=== PATIENT | female | born 1955 | race Two or more races ===

== ENCOUNTER 2021-12-09 21:46 | Inpatient (IN) | payer MEDICARE, OTHER ==
[~2021-12-09] VITALS: Ht 167.6 cm; Wt 62.1 kg
[2021-12-09] MEDS ORDERED: ACET-2154 PO (22:19)
[2021-12-09] MEDS ORDERED: MEMA10TA PO (22:19)
[2021-12-09] MEDS ORDERED: MONT10TA33 PO (22:19)
[2021-12-09] MEDS ORDERED: DONE5TAB34 PO (22:19)
[2021-12-09] MEDS ORDERED: SENN-261 PO (22:19)
[2021-12-09] MEDS ORDERED: ENOX40DI SUBCUT (22:19)
[2021-12-09] MEDS ORDERED: ATOR40TA PO (22:19)
[2021-12-09] MEDS ORDERED: TRAZ-182 PO ×3 (22:19)
[2021-12-09] MEDS ORDERED: DIVA-78 PO (22:19)
[2021-12-09] MEDS ORDERED: IPRA0.2S48 NEB (22:19)
[2021-12-09] MEDS ORDERED: HALO2TAB PO (22:19)
[2021-12-09] MEDS ORDERED: MULT-594 PO (22:19)
[2021-12-09] MEDS ORDERED: DONE10TA44 PO (22:19)
[2021-12-09] MEDS ORDERED: ALBU8.5H8 INH (22:19)
[2021-12-09] MEDS ORDERED: BISA10SU61 RC (22:19)
[2021-12-09] MEDS ORDERED: MIRT-93 PO (22:19)
[2021-12-09] MEDS ORDERED: ACET-73 PO (22:19)
[2021-12-09] MEDS ORDERED: ONDA4TAB11 PO (22:19)
[2021-12-09] MEDS ORDERED: QUET50TA PO (22:19)
[2021-12-09] MEDS ORDERED: PANT40TA49 PO (22:19)
[2021-12-09] MEDS ORDERED: OLAN5TAB70 PO (22:19)
[2021-12-09] MEDS ORDERED: BUDE10.27 INH (22:19)
[2021-12-09] MEDS ORDERED: POLY17PO4 PO (22:19)
[2021-12-09] MEDS ORDERED: MAGN400O6 PO (22:19)
[2021-12-09] MEDS ORDERED: MELA3TAB41 PO (22:19)
[2021-12-09 22:29] LABS: MEAN CORPUSCULAR HEMOGLOBIN 34.2 uug (24.7-32.8); MEAN CORPUSCULAR VOLUME 101.1 fL (75.5-95.3); PLATELET COUNT (AUTO) 170 K/uL (179-408)
[2021-12-09 22:40] LABS: BILIRUBIN,DIRECT 0.1 mg/dL (0.0-0.2); BILIRUBIN,TOTAL 0.2 mg/dL (0.2-1.0); CREATININE 0.8 mg/dL (0.6-1.3); POTASSIUM 3.8 mmol/L (3.5-5.1)
[2021-12-10] MEDS ORDERED: MAG HYDROX/AL HYDROX/SIMETH 30 ML LIQUID UDC PO PRN (02:00)
[2021-12-10] MEDS ORDERED: MAGNESIUM HYDROXIDE 30 ML LIQUID UDC PO PRN (02:00)
[2021-12-10] MEDS ORDERED: ACETAMINOPHEN 650 MG SUPP.RECT RC PRN (02:00)
[2021-12-10] MEDS: CLONAZEPAM 0.5 MG TABLET PO PRN ×4 (02:45→21:49)
[2021-12-10 07:30] VITALS: BP 149/112
[2021-12-10] MEDS: DIVALPROEX SPRINKLE 125 MG CAP.SPRINK PO SCH ×2 (10:51→21:05)
[2021-12-10] MEDS: SERTRALINE HCL 50 MG TABLET PO SCH (11:00)
[2021-12-10 16:00] VITALS: BP 97/58
[2021-12-10 20:00] VITALS: BP 109/49
[2021-12-10] MEDS ORDERED: DIVALPROEX 125 MG TABLET.DR PO SCH (21:00)
[2021-12-10] MEDS: TEMAZEPAM 7.5 MG CAPSULE PO PRN (21:05)
[2021-12-11 08:08] VITALS: BP 105/55
[2021-12-11 08:27] LABS: BILIRUBIN,TOTAL 0.3 mg/dL (0.2-1.0); CREATININE 0.9 mg/dL (0.6-1.3); POTASSIUM 4.3 mmol/L (3.5-5.1); TOTAL PROTEIN, SERUM 5.9 g/dL (6.4-8.2)
[2021-12-11] MEDS: DIVALPROEX SPRINKLE 125 MG CAP.SPRINK PO SCH ×2 (09:25→21:02)
[2021-12-11] MEDS: SERTRALINE HCL 50 MG TABLET PO SCH (09:25)
[2021-12-11] MEDS ORDERED: SERTRALINE HCL 50 MG TABLET PO SCH (10:00)
[2021-12-11] MEDS: CLONAZEPAM 0.5 MG TABLET PO PRN ×2 (10:23→20:14)
[2021-12-11] MEDS ORDERED: HALOPERIDOL LACTATE 5 MG/1 ML VIAL IM ONE (12:15)
[2021-12-11] MEDS ORDERED: BISACODYL 10 MG SUPP.RECT RC PRN (12:15)
[2021-12-11] MEDS ORDERED: ALBUTEROL SULFATE 8 GM HFA.AER.AD INH PRN (12:15)
[2021-12-11] MEDS ORDERED: diphenhydrAMINE 50 MG/1 ML VIAL IM ONE (12:15)
[2021-12-11] MEDS ORDERED: LORAZEPAM 2 MG/1 ML VIAL IV ONE (12:15)
[2021-12-11] MEDS ORDERED: IPRATROPIUM BROMIDE 0.5 MG/2.5 ML NEBU NEB PRN (12:15)
[2021-12-11] MEDS ORDERED: LORAZEPAM 2 MG/1 ML VIAL IM ONE (12:30)
[2021-12-11 14:31] VITALS: BP 98/54
[2021-12-11 16:57] VITALS: BP 102/50
[2021-12-11] MEDS: SENNOSIDES 1 TABLET PO SCH (17:00)
[2021-12-11 20:02] VITALS: BP 101/52
[2021-12-12] MEDS ORDERED: ALBUTEROL SULFATE 2.5 MG/3 ML NEBU NEB PRN (06:00)
[2021-12-12] MEDS: CLONAZEPAM 0.5 MG TABLET PO PRN ×5 (06:21→22:05)
[2021-12-12] MEDS: ACETAMINOPHEN 325 MG TABLET PO PRN ×2 (07:21→15:44)
[2021-12-12 07:50] VITALS: BP 96/48
[2021-12-12] MEDS: MIRALAX 17 GM POWD.PACK PO SCH (09:38)
[2021-12-12] MEDS: MONTELUKAST SODIUM 10 MG TABLET PO SCH (09:39)
[2021-12-12] MEDS: MULTIVITAMINS,THERAPEUTIC TABLET PO SCH (09:39)
[2021-12-12] MEDS: PANTOPRAZOLE SODIUM 40 MG TABLET.DR PO SCH (09:39)
[2021-12-12] MEDS: REMEDY ESSENTIAL ZINC PASTE 113 GM TOP SCH ×2 (09:40→21:00)
[2021-12-12] MEDS: SERTRALINE HCL 50 MG TABLET PO SCH (09:40)
[2021-12-12] MEDS: SENNOSIDES 1 TABLET PO SCH ×2 (09:40→17:18)
[2021-12-12] MEDS: DIVALPROEX SPRINKLE 125 MG CAP.SPRINK PO SCH ×2 (09:44→20:37)
[2021-12-12] MEDS: FLUTICASONE/VILANTEROL 1 EACH BLST.W.DEV INH SCH (11:00)
[2021-12-12 16:07] VITALS: BP 125/61
[2021-12-12 20:06] VITALS: BP 117/67
[2021-12-13 08:00] VITALS: BP 138/97
[2021-12-13] MEDS: CLONAZEPAM 0.5 MG TABLET PO PRN ×3 (08:52→17:15)
[2021-12-13] MEDS: FLUTICASONE/VILANTEROL 1 EACH BLST.W.DEV INH SCH (08:52)
[2021-12-13] MEDS: SENNOSIDES 1 TABLET PO SCH ×2 (08:52→17:13)
[2021-12-13] MEDS: MONTELUKAST SODIUM 10 MG TABLET PO SCH (08:52)
[2021-12-13] MEDS: SERTRALINE HCL 50 MG TABLET PO SCH (08:52)
[2021-12-13] MEDS: MULTIVITAMINS,THERAPEUTIC TABLET PO SCH (08:52)
[2021-12-13] MEDS: DIVALPROEX SPRINKLE 125 MG CAP.SPRINK PO SCH ×2 (08:52→20:05)
[2021-12-13] MEDS: MIRALAX 17 GM POWD.PACK PO SCH (08:52)
[2021-12-13] MEDS: PANTOPRAZOLE SODIUM 40 MG TABLET.DR PO SCH (08:52)
[2021-12-13] MEDS: REMEDY ESSENTIAL ZINC PASTE 113 GM TOP SCH ×2 (08:53→20:07)
[2021-12-13] MEDS: ACETAMINOPHEN 325 MG TABLET PO PRN (12:40)
[2021-12-13 16:43] VITALS: BP 109/64
[2021-12-13 20:02] VITALS: BP 130/64
[2021-12-13] MEDS ORDERED: OLANZAPINE ZYDIS 5 MG TAB.RAPDIS PO SCH (21:00)
[2021-12-13] MEDS: TEMAZEPAM 7.5 MG CAPSULE PO PRN (21:19)
[2021-12-14] MEDS: CLONAZEPAM 0.5 MG TABLET PO PRN ×2 (03:26→11:46)
[2021-12-14 07:30] VITALS: BP 99/52
[2021-12-14] MEDS: SERTRALINE HCL 50 MG TABLET PO SCH (08:50)
[2021-12-14] MEDS: SENNOSIDES 1 TABLET PO SCH (08:50)
[2021-12-14] MEDS: MULTIVITAMINS,THERAPEUTIC TABLET PO SCH (08:50)
[2021-12-14] MEDS: MONTELUKAST SODIUM 10 MG TABLET PO SCH (08:50)
[2021-12-14] MEDS: DIVALPROEX SPRINKLE 125 MG CAP.SPRINK PO SCH (08:50)
[2021-12-14] MEDS: PANTOPRAZOLE SODIUM 40 MG TABLET.DR PO SCH (08:50)
[2021-12-14] MEDS: FLUTICASONE/VILANTEROL 1 EACH BLST.W.DEV INH SCH (08:51)
[2021-12-14] MEDS: MIRALAX 17 GM POWD.PACK PO SCH (08:51)
[2021-12-14] MEDS: REMEDY ESSENTIAL ZINC PASTE 113 GM TOP SCH (08:52)
[2021-12-14] MEDS: ACETAMINOPHEN 325 MG TABLET PO PRN (11:46)
== END 2021-12-14 14:30 | disposition hospice, inpatient (51) | DRG 885 ==
LOC: ER 21:51 → GPS 12-10 01:18
PROVIDERS: ADMIT Psychiatry & Neurology Psychiatry; ATTEND Internal Medicine
DX: F32.3 Major depressive disorder, single episode, severe with psychotic features (principal); F41.9 Anxiety disorder, unspecified; G30.0 Alzheimer's disease with early onset; F02.80 Dementia in other diseases classified elsewhere, unspecified severity, without behavioral disturbance, psychotic disturbance, mood disturbance, and anxiety; J44.9 Chronic obstructive pulmonary disease, unspecified; F43.10 Post-traumatic stress disorder, unspecified; X58.XXXS Exposure to other specified factors, sequela; Z86.16 Personal history of COVID-19; E78.5 Hyperlipidemia, unspecified; K21.9 Gastro-esophageal reflux disease without esophagitis; G40.909 Epilepsy, unspecified, not intractable, without status epilepticus; D69.6 Thrombocytopenia, unspecified; Z87.440 Personal history of urinary (tract) infections; Z79.899 Other long term (current) drug therapy; D51.9 Vitamin B12 deficiency anemia, unspecified; Z81.8 Family history of other mental and behavioral disorders
CPT/HCPCS: 36415; 71045; 80164; 85025; 93005; 97161; A4663; J1200; J1630; J2060; J3535

== ENCOUNTER 2022-01-25 18:14 | Inpatient (IN) | payer MEDICARE, OTHER ==
[~2022-01-25] VITALS: Ht 154.9 cm; Wt 56.7 kg
[~2022-01-25 18:14] MED LIST: ACET-2154 PO; ACET-73 PO; ALBU8.5H8 INH; ATOR40TA PO; BISA10SU61 RC; BUDE10.27 INH; ENOX40DI SUBCUT; IPRA0.2S48 NEB; MAGN400O6 PO; MONT10TA33 PO; MULT-594 PO; ONDA4TAB11 PO; PANT40TA49 PO; POLY17PO4 PO; SENN-261 PO
--- NOTE | 2022-01-25 18:23 | NUR ---
MEDICATION RECONCILIATION: There is no information available about pt's current home medications. Pt is unable to provide information and there was no information sent with the paperwork from her facility.
[2022-01-25] MEDS ORDERED: IV NORMAL SALINE 1000 ML BAG IV ONE (18:45)
[2022-01-25 18:52] LABS: HEMATOCRIT 41.3 % (31.2-41.9); MEAN CORPUSCULAR HEMOGLOBIN 33.8 uug (24.7-32.8); MEAN CORPUSCULAR VOLUME 98.5 fL (75.5-95.3); PLATELET COUNT (AUTO) 208 K/uL (179-408)
[2022-01-25 18:59] LABS: CREATININE 0.7 mg/dL (0.6-1.3); POTASSIUM 4.4 mmol/L (3.5-5.1)
[2022-01-25 19:05] LABS: BILIRUBIN,DIRECT 0.1 mg/dL (0.0-0.2); BILIRUBIN,TOTAL 0.5 mg/dL (0.2-1.0); TOTAL PROTEIN, SERUM 6.7 g/dL (6.4-8.2)
[2022-01-25] MEDS ORDERED: KETAMINE HCL 500 MG/10 ML INJ ONE (19:12)
[2022-01-25] MEDS ORDERED: KETAMINE HCL 500 MG/10 ML INJ IV ONE (19:15)
[2022-01-25 20:19] LABS: *BILIRUBIN,URIN NEGATIVE (NEGATIVE); *BLOOD, URINE NEGATIVE (NEGATIVE); *CLARITY,URINE CLEAR (CLEAR); *COLOR,URINE YELLOW (YELLOW); *KETONES,URINE 1+ (NEGATIVE); LEUKOCYTE ESTERASE ,URINE NEGATIVE (NEGATIVE); NITRITE, URINE NEGATIVE (NEGATIVE); PH,URINE 7.5 (5.0-8.0); UGLUCOSE NEGATIVE (NEGATIVE)
[2022-01-25] MEDS ORDERED: ZIPRASIDONE MESYLATE 20 MG VIAL IM ONE ×2 (20:30→20:31)
[2022-01-25 22:24] LABS: BACTERIA,URINE FEW /HPF (NONE SEEN); MUCUS,URINE MODERATE /LPF (0-FEW); RBC,URINE 0-3 /HPF (0-3); SQUAMOUS EPITHELIAL CELL,UR MODERATE /HPF (NONE SEEN); WBC,URINE 0-3 /HPF (0-3)
[2022-01-25] MEDS ORDERED: REMEDY ESSENTIAL ZINC PASTE 113 GM TP PRN (22:45)
[2022-01-25] MEDS ORDERED: ACETAMINOPHEN 650 MG SUPP.RECT RC PRN (22:45)
[2022-01-25] MEDS ORDERED: ONDANSETRON 4 MG/2 ML VIAL IV PRN (22:45)
--- NOTE | 2022-01-25 23:30 | NUR ---
called for bed. Patient will go to room 304
--- NOTE | 2022-01-26 00:08 | NUR ---
report given to Mayi KENT
--- NOTE | 2022-01-26 00:35 | NUR ---
Pt. admitted to room 304 , under care of Dr Norwood Belongs List completed Mayi RN aware of patient's arrival
[2022-01-26] MEDS: IV D5 1/2 NS 1000 ML 1,000 ML IV PRN ×2 (00:46→14:34)
[2022-01-26 00:59] VITALS: BP 134/65
--- NOTE | 2022-01-26 01:00 | NUR ---
Pt admitted to med surg in stable condition. No distress noted. Pt unable to follow commands and remains confused. IV site intact. Neville intact draining to gravity.
[2022-01-26] MEDS: ZIPRASIDONE MESYLATE 20 MG VIAL IM PRN ×2 (03:38→12:39)
--- NOTE | 2022-01-26 03:45 | NUR ---
Pt given IM Geodon 10mg for agitation. Pt yelling and trying to get out of bed, being combative with staff. Tolerated medication well.
[2022-01-26 04:00] VITALS: BP 141/73
[2022-01-26 07:37] LABS: HEMATOCRIT 38.6 % (31.2-41.9); MEAN CORPUSCULAR VOLUME 100.6 fL (75.5-95.3); PLATELET COUNT (AUTO) 176 K/uL (179-408)
[2022-01-26 07:50] LABS: CREATININE 0.8 mg/dL (0.6-1.3); MAGNESIUM 2.1 mg/dL (1.8-2.4); PHOSPHOROUS 3.7 mg/dL (2.5-4.9); POTASSIUM 4.3 mmol/L (3.5-5.1)
[2022-01-26] MEDS: PANTOPRAZOLE SODIUM 40 MG VIAL IV SCH (08:49)
--- NOTE | 2022-01-26 10:29 | NUR ---
Patient becoming more agitated. Next medication due at 1138. Other measures provided, patient attempting to get out of bed. Patient to have psyche consult tomorrow morning.
--- NOTE | 2022-01-26 11:02 | NUR ---
Patient to not receive Geodone during PM shift due to patient's psyche consult tomorrow morning. Will endorse information to PM nurse.
[2022-01-26 12:00] VITALS: BP 90/49
[2022-01-26 15:59] LABS: *BILIRUBIN,URIN NEGATIVE (NEGATIVE); *BLOOD, URINE 3+ (NEGATIVE); *CLARITY,URINE CLEAR (CLEAR); *COLOR,URINE YELLOW (YELLOW); *KETONES,URINE 1+ (NEGATIVE); *UROBILINOGEN,URINE 0.2 E.U./dl (NORMAL); LEUKOCYTE ESTERASE ,URINE 1+ (NEGATIVE); NITRITE, URINE NEGATIVE (NEGATIVE); UGLUCOSE NEGATIVE (NEGATIVE)
[2022-01-26 16:00] VITALS: BP 109/51
--- NOTE | 2022-01-26 17:12 | NUR ---
New david catheter placed due to previous david catheter bypassing.
[2022-01-26] MEDS: CEFTRIAXONE 1 G in IV DEXTROSE 5% 50 ML IV SCH (18:20)
--- NOTE | 2022-01-26 18:35 | NUR ---
Patient received care well today, despite being agitated. Pharmacological measures taken to help reduce patients agitation and being combative. Patient to remain NPO. Patient started on rochepin this evening and tolerating well. Mittens place on both hands bilaterally to prevent patient from pulling on IV site. IV site intact and patent. Bed left in lowest position with sitter at bedside. Patient 1:1. Comfort measures provided.
--- NOTE | 2022-01-26 19:30 | NUR ---
Received patient lying in bed. 1:1 sitter on site. Patient alert but confused and disoriented. Still unable to sit still in bed. Screams at times but redirectable. IV site on left hand intact and patent. IVF infusing. NPO status at this time. Needs anticipated to. Continue to monitor.
[2022-01-26 20:00] VITALS: BP 131/65
[2022-01-26] MEDS: HEPARIN SODIUM,PORCINE 5,000 UNITS/ML VIAL SQ SCH (20:32)
[2022-01-26 21:14] LABS: RBC,URINE 20-50 /HPF (0-3)
[2022-01-26 21:15] LABS: BACTERIA,URINE NONE SEEN /HPF (NONE SEEN); MUCUS,URINE FEW /LPF (0-FEW); SQUAMOUS EPITHELIAL CELL,UR NONE SEEN /HPF (NONE SEEN)
--- NOTE | 2022-01-27 | NUR ---
SBAR report given and care transferred to YOLI Quintero.
[2022-01-27] MEDS: OLANZAPINE 10 MG VIAL IM PRN ×2 (00:30→14:52)
--- NOTE | 2022-01-27 00:30 | NUR ---
Patient screaming, unable to sleep, and agitated, Xyprexia 5mg IM given.
[2022-01-27] MEDS: IV D5 1/2 NS 1000 ML 1,000 ML IV PRN ×2 (03:23→14:45)
[2022-01-27 04:00] VITALS: BP 125/72
--- NOTE | 2022-01-27 05:36 | NUR ---
Patient able to slept in short time intervals, intervals with calm behavior. Dry mouth noted, oral care done.
[2022-01-27 07:25] LABS: HEMATOCRIT 37.1 % (31.2-41.9); MEAN CORPUSCULAR HEMOGLOBIN 34.3 uug (24.7-32.8); MEAN CORPUSCULAR VOLUME 97.8 fL (75.5-95.3); PLATELET COUNT (AUTO) 188 K/uL (179-408)
[2022-01-27 07:56] LABS: CREATININE 0.7 mg/dL (0.6-1.3); MAGNESIUM 1.8 mg/dL (1.8-2.4); PHOSPHOROUS 3.3 mg/dL (2.5-4.9); POTASSIUM 4.4 mmol/L (3.5-5.1)
[2022-01-27 07:59] LABS: THYROID STIMULATING HORMONE 1.763 mIU/mL (0.358-3.740)
[2022-01-27] MEDS: PANTOPRAZOLE SODIUM 40 MG VIAL IV SCH (08:07)
[2022-01-27] MEDS: HEPARIN SODIUM,PORCINE 5,000 UNITS/ML VIAL SQ SCH ×2 (08:08→20:39)
--- NOTE | 2022-01-27 08:16 | NUR ---
Received patient lying in bed. 1:1 sitter at bed side Patient alert but confused and disoriented. Screams at this time IV site on left hand intact and patent. IVF infusing. NPO status at this time. Continue to monitor.
[2022-01-27 11:57] VITALS: BP 117/72
--- NOTE | 2022-01-27 12:34 | NUR ---
PT WENT TO OR VIA BED FOR THE PROCEDURE
[2022-01-27] MEDS ORDERED: PROPOFOL 200 MG/20 ML BOTTLE IV ONE (12:53)
[2022-01-27] MEDS ORDERED: CEFAZOLIN 1 G VIAL IM ONE (12:53)
[2022-01-27] MEDS ORDERED: LIDOCAINE-MPF 2% 5 ML VIAL IJ ONE (12:53)
--- NOTE | 2022-01-27 14:38 | NUR ---
PT RECEIVED FROM RECOVERY ROOM VIA BED IN STABLE CONDITION
--- NOTE | 2022-01-27 14:52 | NUR ---
PT IS YELLING SCREAMING AND HITTING THE STAFF PER MD ORDERS ZYPREXA 5MG IM GIVEN
[2022-01-27 15:15] VITALS: BP 120/84
[2022-01-27] MEDS: CEFTRIAXONE 1 G in IV DEXTROSE 5% 50 ML IV SCH (17:43)
--- NOTE | 2022-01-27 19:30 | NUR ---
Patient in bed, thrashing, yelling and attempting to hit staff when care is being provided. Patient is Lao speaking but does not answer to any questions in Lao. Sitter is at bed side. S/p PEG placement, PEG [address], no active bleeding. NPO. Seizure precautions followed. Safety measures in place.
[2022-01-27 19:45] VITALS: BP 141/88
[2022-01-27] MEDS: MORPHINE SULFATE 4 MG/1 ML DISP.SYRIN IV PRN (20:38)
--- NOTE | 2022-01-28 01:00 | NUR ---
Patient is now sleeping comfortably, Mittens discontinued. Sitter is at bedside.
[2022-01-28 04:30] VITALS: BP 132/66
[2022-01-28] MEDS: IV D5 1/2 NS 1000 ML 1,000 ML IV PRN ×2 (05:11→17:46)
[2022-01-28 06:54] LABS: HEMATOCRIT 39.5 % (31.2-41.9); MEAN CORPUSCULAR HEMOGLOBIN 33.5 uug (24.7-32.8); PLATELET COUNT (AUTO) 212 K/uL (179-408)
[2022-01-28 07:21] LABS: CREATININE 0.6 mg/dL (0.6-1.3); MAGNESIUM 1.8 mg/dL (1.8-2.4); PHOSPHOROUS 3.6 mg/dL (2.5-4.9); POTASSIUM 3.5 mmol/L (3.5-5.1)
[2022-01-28 08:00] VITALS: BP 122/52
[2022-01-28] MEDS: HEPARIN SODIUM,PORCINE 5,000 UNITS/ML VIAL SQ SCH ×2 (08:00→20:38)
[2022-01-28] MEDS: PANTOPRAZOLE SODIUM 40 MG VIAL IV SCH (08:00)
[2022-01-28] MEDS: JEVITY 1.2 1000 ML LIQUID GT PRN (08:39)
[2022-01-28] MEDS: DIVALPROEX 500 MG TABLET.DR PO SCH ×2 (11:37→16:18)
[2022-01-28] MEDS: TRAZODONE 50 MG TABLET GT SCH ×2 (12:34→16:18)
[2022-01-28 15:30] VITALS: BP 128/41
[2022-01-28 19:00] VITALS: BP 113/58
[2022-01-28] MEDS: MORPHINE SULFATE 4 MG/1 ML DISP.SYRIN IV PRN (19:48)
--- NOTE | 2022-01-28 20:00 | NUR ---
Patient is agitated, attempting to get out of bed. Yelling and contact facial grimacing. Attempted to distract patient, quiet environment provided. Neville catheter intact, draining clear yellow urine. GT feeding Jevity 1.2 infusing at 20cc/hr, residual is 40cc. Sitter at bedside for safety.
[2022-01-28] MEDS: MIRTAZAPINE 15 MG TABLET GT SCH (20:38)
--- NOTE | 2022-01-29 05:40 | NUR ---
Patient slept intermittently through out the night. Patient does not answer to questions, does track staff. Tolerating GT, Jevity 1.2 well with residual of 30-40cc through out the night. GT feeding advanced to 30cc/hr at 0300, patient tolerates well. Aspiration precautions continued, HOB up. No respiratory distress. Sitter at bedside. Right hand IV intact and infusing D5 1/2 NS at 75cc/hr. Safety measures continued.
[2022-01-29 06:37] LABS: CREATININE 0.7 mg/dL (0.6-1.3); MAGNESIUM 3.2 mg/dL (1.8-2.4); PHOSPHOROUS 4.7 mg/dL (2.5-4.9); POTASSIUM 4.5 mmol/L (3.5-5.1)
[2022-01-29] MEDS: IV D5 1/2 NS 1000 ML 1,000 ML IV PRN (07:02)
[2022-01-29 07:03] LABS: HEMATOCRIT 58.3 % (31.2-41.9); MEAN CORPUSCULAR HEMOGLOBIN 33.1 uug (24.7-32.8); MEAN CORPUSCULAR VOLUME 103.7 fL (75.5-95.3); PLATELET COUNT (AUTO) 105 K/uL (179-408)
[2022-01-29] MEDS: OLANZAPINE 10 MG VIAL IM PRN (07:29)
[2022-01-29] MEDS: PANTOPRAZOLE ORAL SUSPENSION 40 MG SUSPDR.PKT GT SCH (07:29)
[2022-01-29] MEDS: DIVALPROEX 500 MG TABLET.DR PO SCH ×2 (08:18→16:15)
[2022-01-29] MEDS: TRAZODONE 50 MG TABLET GT SCH ×3 (08:18→16:15)
[2022-01-29] MEDS: HEPARIN SODIUM,PORCINE 5,000 UNITS/ML VIAL SQ SCH ×2 (08:19→20:26)
[2022-01-29 09:47] LABS: EOSINOPHILS % (MANUAL) 1 % (0-8); LYMPHOCYTES % (MANUAL) 51 % (20-40); NEUTROPHILS % (MANUAL) 48 % (42-75)
[2022-01-29 11:48] VITALS: BP 123/49
[2022-01-29] MEDS: IV 1/2NS 1000 ML 1,000 ML IV PRN (14:17)
[2022-01-29 15:05] VITALS: BP 132/63
--- NOTE | 2022-01-29 19:25 | NUR ---
Patient resting in bed comfortably. Calm at this time. On Ra. No s/s of distress noted.HOB elevated.Gtube in place with GTF running at 40 ml/hr. No residual noted. Aspiration observed at all times. Iv on right hand patent and intact with IVF infusing well. Neville catheter intact, draining clear yellow urine.Sitter at bedside for safety.
[2022-01-29 20:03] VITALS: BP 93/63
[2022-01-29] MEDS: MIRTAZAPINE 15 MG TABLET GT SCH (20:16)
[2022-01-29] MEDS: MORPHINE SULFATE 4 MG/1 ML DISP.SYRIN IV PRN (23:20)
[2022-01-30] MEDS: IV 1/2NS 1000 ML 1,000 ML IV PRN (02:42)
[2022-01-30 04:03] VITALS: BP 112/55
[2022-01-30] MEDS: JEVITY 1.2 1000 ML LIQUID GT PRN (04:07)
[2022-01-30] MEDS: PANTOPRAZOLE ORAL SUSPENSION 40 MG SUSPDR.PKT GT SCH (05:12)
--- NOTE | 2022-01-30 06:51 | NUR ---
Patient slept intermittently. Confused and disoriented with episodes of screaming.Constants redirection rendered .Gtube feeding increased to 45cc/hr. Tolerated well.No residual noted. Repositioned patient .HOB remained elevated.All needs anticipated and met accordingly.Will endorse to oncoming shift
[2022-01-30 07:02] LABS: MEAN CORPUSCULAR HEMOGLOBIN 33.7 uug (24.7-32.8); MEAN CORPUSCULAR VOLUME 97.9 fL (75.5-95.3); PLATELET COUNT (AUTO) 171 K/uL (179-408)
[2022-01-30] MEDS: HEPARIN SODIUM,PORCINE 5,000 UNITS/ML VIAL SQ SCH ×2 (08:01→20:48)
[2022-01-30] MEDS: DIVALPROEX 500 MG TABLET.DR PO SCH ×2 (08:01→16:02)
[2022-01-30] MEDS: TRAZODONE 50 MG TABLET GT SCH ×3 (08:01→16:02)
[2022-01-30 08:05] LABS: CREATININE 0.6 mg/dL (0.6-1.3); MAGNESIUM 1.8 mg/dL (1.8-2.4); PHOSPHOROUS 3.8 mg/dL (2.5-4.9); POTASSIUM 3.2 mmol/L (3.5-5.1)
[2022-01-30] MEDS ORDERED: POTASSIUM CHLORIDE 20 MEQ TAB.PRT.SR PO ONE (10:00)
[2022-01-30] MEDS: MORPHINE SULFATE 4 MG/1 ML DISP.SYRIN IV PRN (11:42)
[2022-01-30] MEDS: TRAZODONE 50 MG TABLET PO PRN (11:44)
[2022-01-30 12:00] VITALS: BP 109/47
[2022-01-30 16:00] VITALS: BP 99/47
[2022-01-30] MEDS: VALPROIC ACID 250 MG/5 ML LIQUID UDC GT SCH (17:00)
--- NOTE | 2022-01-30 17:40 | NUR ---
NED IN ROOM WITH PATIENT. PATIENT AWAKE, CONFUSED AND SCREAMING. RN OFFERED TO MEDICATE PATIENT FOR BEHAVIOR MODIFICATION. NED REFUSED MED. AND STATED THAT SHE COULD TAKE CARE OF MONSERRAT WITHOUT DRUGS. PATIENT CONTINUED TO SCREAM AND WAS FURTHER AGITATED. NED THEN LEANED ACROSS THE BED, AND SCREAMED EVEN LOUDER IN PATIENT'S LEFT EAR. INSTRUCTED THAT [facility] WILL ACCEPT THIS PATIENT. NED REFUSED THE TRANSFER BECAUSE SHE HAD NOT YET SEEN THIS FACILITY. NED STATES THAT SHE IS PLANNING TO REPORT ME TO MY INDUCTION MACHINE SETTER, MY DIRECTOR LONG TERM CARE, AND TO [facility] FOR DISCHARGING THE PATIENT TOO EARLY. INSTRUCTED THAT I DO NOT WRITE ORDERS, I ONLY HELP TO EXECUTE THEM.
[2022-01-30] MEDS: OLANZAPINE 10 MG VIAL IM PRN (18:44)
--- NOTE | 2022-01-30 19:14 | NUR ---
pt is screaming yelling hitting the sitter Zyprexa 5mg im given per md orders
--- NOTE | 2022-01-30 19:15 | NUR ---
Received patient on bed, awake, in calm behavior, not in labored breathing, with jevity feeding via G-tube at 50cc/hr, intact, tolerated well. No signs of pain noted, Safety precautions provided, on 1:1 sitter at all times.
[2022-01-30 20:00] VITALS: BP 101/46
[2022-01-30] MEDS: MIRTAZAPINE 15 MG TABLET GT SCH (20:46)
[2022-01-31] MEDS: TRAZODONE 50 MG TABLET PO PRN (00:36)
--- NOTE | 2022-01-31 02:00 | NUR ---
G-tube residual checked, no residual obtained, jevity feeding increased rate to 55cc/hr as the goal rate.
[2022-01-31] MEDS: MORPHINE SULFATE 4 MG/1 ML DISP.SYRIN IV PRN ×2 (02:18→20:28)
--- NOTE | 2022-01-31 02:19 | NUR ---
Patient screaming, appears agitated, moaning, facial grimacing noted, Morphine Sulfate 4mg IV given.
--- NOTE | 2022-01-31 03:00 | NUR ---
Patient able to slept for short intervals, easily awaken. Repositioned for comfort, still with episode of screaming. Repositioned for comfort.
[2022-01-31] MEDS: JEVITY 1.2 1000 ML LIQUID GT PRN (05:12)
--- NOTE | 2022-01-31 06:00 | NUR ---
Patient sleeping at this time,. G-tube flushed with water, off at this time as ordered. Patient vitally stable.
[2022-01-31] MEDS: PANTOPRAZOLE ORAL SUSPENSION 40 MG SUSPDR.PKT GT SCH (06:01)
[2022-01-31 06:03] VITALS: BP 100/50
[2022-01-31 07:54] LABS: CREATININE 0.6 mg/dL (0.6-1.3); POTASSIUM 4.1 mmol/L (3.5-5.1)
[2022-01-31] MEDS: VALPROIC ACID 250 MG/5 ML LIQUID UDC GT SCH ×2 (08:00→16:05)
[2022-01-31] MEDS: HEPARIN SODIUM,PORCINE 5,000 UNITS/ML VIAL SQ SCH ×2 (08:00→20:28)
[2022-01-31] MEDS: TRAZODONE 50 MG TABLET GT SCH ×3 (08:00→16:05)
[2022-01-31 11:35] VITALS: BP 102/63
[2022-01-31 15:58] VITALS: BP 110/48
[2022-01-31 20:00] VITALS: BP 121/67
[2022-01-31] MEDS: MIRTAZAPINE 15 MG TABLET GT SCH (20:23)
[2022-02-01 04:00] VITALS: BP 103/56
[2022-02-01] MEDS: TRAZODONE 50 MG TABLET PO PRN ×2 (04:52→20:44)
[2022-02-01] MEDS: PANTOPRAZOLE ORAL SUSPENSION 40 MG SUSPDR.PKT GT SCH (05:08)
--- NOTE | 2022-02-01 05:15 | NUR ---
Pt screaming and anxious intermittently throughout the night. Given Trazodone PRN, tolerated well. GTube flushed and patent. IV site intact. 1:1 sitter at bedside for safety. Will endorse to day shift.
[2022-02-01] MEDS: TRAZODONE 50 MG TABLET GT SCH ×3 (08:43→16:06)
[2022-02-01] MEDS: VALPROIC ACID 250 MG/5 ML LIQUID UDC GT SCH ×2 (08:43→16:06)
[2022-02-01] MEDS: HEPARIN SODIUM,PORCINE 5,000 UNITS/ML VIAL SQ SCH ×2 (08:47→20:12)
[2022-02-01] MEDS: JEVITY 1.2 1000 ML LIQUID GT PRN (10:06)
[2022-02-01 11:27] VITALS: BP 136/60
[2022-02-01 15:20] VITALS: BP 107/47
--- NOTE | 2022-02-01 18:22 | NUR ---
Pt has been calm and cooperative with care today. No screaming was noted for most of the shift. Pt is alert but confused. Spoke with DPOA and gave an update on pt status. Comfort measures have been provided, sitter at bedside, Gtube patent.
[2022-02-01 20:09] VITALS: BP 101/41
[2022-02-01] MEDS: MIRTAZAPINE 15 MG TABLET GT SCH (20:12)
[2022-02-01] MEDS: MORPHINE SULFATE 4 MG/1 ML DISP.SYRIN IV PRN (20:12)
[2022-02-02 00:30] VITALS: BP 108/77
[2022-02-02] MEDS: MORPHINE SULFATE 4 MG/1 ML DISP.SYRIN IV PRN (02:06)
[2022-02-02 04:00] VITALS: BP 105/65
--- NOTE | 2022-02-02 05:18 | NUR ---
Pt anxious and screaming all night. 1:1 sitter at bedside for safety. PRN medications given to help calm patient, not effective. Music provided to distract patient, not effective. IV site intact. Neville draining to gravity. GT patent running feeding per orders. Safety protocols kept in place throughout the shift. Will endorse to day shift.
[2022-02-02] MEDS: PANTOPRAZOLE ORAL SUSPENSION 40 MG SUSPDR.PKT GT SCH (06:18)
--- NOTE | 2022-02-02 07:20 | NUR ---
Arrived to patient anxious and screaming while with 1:1 sitter at bedside for patient safety. Feeding to resume at 0800 at 55 cc/hr of Jevity 1.2 GT patent and intact. IV site patent and intact. Will continue to monitor patient throughout shift.
[2022-02-02 07:54] VITALS: BP 95/38
[2022-02-02] MEDS: TRAZODONE 50 MG TABLET GT SCH ×3 (08:30→16:38)
[2022-02-02] MEDS: VALPROIC ACID 250 MG/5 ML LIQUID UDC GT SCH ×2 (08:30→16:38)
[2022-02-02] MEDS: HEPARIN SODIUM,PORCINE 5,000 UNITS/ML VIAL SQ SCH ×2 (08:31→20:07)
[2022-02-02] MEDS: JEVITY 1.2 1000 ML LIQUID GT PRN (09:46)
[2022-02-02 15:41] VITALS: BP 100/37
--- NOTE | 2022-02-02 18:43 | NUR ---
Patient tolerated care well throughout shift. Patient put on chair to help ease with patient's screaming. Proven useful until uncomfortable. Patient's IV site intact and patent. Bed left in lowest position with call light within reach. Will endorse information to PM nurse.
[2022-02-02 20:00] VITALS: BP 108/70
[2022-02-02] MEDS: MIRTAZAPINE 15 MG TABLET GT SCH (20:03)
[2022-02-02] MEDS: TRAZODONE 50 MG TABLET PO PRN (20:03)
[2022-02-02] MEDS ORDERED: LORAZEPAM 2 MG/1 ML VIAL IV ONE ×2 (20:30→23:45)
[2022-02-03 04:00] VITALS: BP 116/64
--- NOTE | 2022-02-03 05:25 | NUR ---
Restless and screaming all night. 1:1 sitter at bedside for safety. GT patent and running ordered feeding, tolerating well, no residual. IV site is intact. Neville draining with gravity. Safety protocols kept in place throughout the shift, will endorse to day shift.
[2022-02-03] MEDS: PANTOPRAZOLE ORAL SUSPENSION 40 MG SUSPDR.PKT GT SCH (06:02)
[2022-02-03 07:42] VITALS: BP 106/62
[2022-02-03] MEDS: JEVITY 1.2 1000 ML LIQUID GT PRN (09:32)
[2022-02-03] MEDS: TRAZODONE 50 MG TABLET GT SCH ×3 (09:32→16:34)
[2022-02-03] MEDS: VALPROIC ACID 250 MG/5 ML LIQUID UDC GT SCH ×2 (09:32→16:34)
[2022-02-03] MEDS: HEPARIN SODIUM,PORCINE 5,000 UNITS/ML VIAL SQ SCH ×2 (09:33→21:17)
[2022-02-03 14:45] VITALS: BP 131/47
[2022-02-03 17:06] VITALS: BP 118/51
--- NOTE | 2022-02-03 18:48 | NUR ---
Patient received care well today throughout shift. Patient slept most of shift with minimal screaming during shift. IV site intact and patent. Bed left in lowest position with call light within reach. Comfort measures provided. Will endorse information to PM nurse.
[2022-02-03 20:00] VITALS: BP 120/59
[2022-02-03] MEDS: MIRTAZAPINE 15 MG TABLET GT SCH (21:17)
[2022-02-04] MEDS: TRAZODONE 50 MG TABLET PO PRN (00:28)
[2022-02-04] MEDS: MORPHINE SULFATE 4 MG/1 ML DISP.SYRIN IV PRN (02:02)
[2022-02-04 05:55] VITALS: BP 105/54
[2022-02-04] MEDS: PANTOPRAZOLE ORAL SUSPENSION 40 MG SUSPDR.PKT GT SCH (05:57)
--- NOTE | 2022-02-04 06:24 | NUR ---
SITTER AT BEDSIDE. SLEPT AT INTERVALS. BED ALARM ON. VS WNL. ALL NEEDS ATTENDED.
[2022-02-04] MEDS: TRAZODONE 50 MG TABLET GT SCH (08:59)
[2022-02-04] MEDS: VALPROIC ACID 250 MG/5 ML LIQUID UDC GT SCH (08:59)
[2022-02-04] MEDS: HEPARIN SODIUM,PORCINE 5,000 UNITS/ML VIAL SQ SCH (09:01)
[2022-02-04] MEDS: JEVITY 1.2 1000 ML LIQUID GT PRN (09:23)
--- NOTE | 2022-02-04 10:33 | NUR ---
Report given to Rafa KENT of [facility]
--- NOTE | 2022-02-04 11:05 | NUR ---
Patient discharged from unit at 1105. IV site removed. ID badge removed. Discharge education provided.
== END 2022-02-04 11:05 | DRG 640 ==
LOC: ER 18:16 → MEDSURG3 23:59
PROVIDERS: ADMIT Nurse Practitioner Family; ATTEND Nurse Practitioner Family
PROC: 0DH63UZ Insertion of Feeding Device into Stomach, Percutaneous Approach (ICD-10-PCS; principal; 2022-01-27)
DX: R62.7 Adult failure to thrive (principal); G93.41 Metabolic encephalopathy; E44.1 Mild protein-calorie malnutrition; F03.91 Unspecified dementia, unspecified severity, with behavioral disturbance; J44.9 Chronic obstructive pulmonary disease, unspecified; G40.909 Epilepsy, unspecified, not intractable, without status epilepticus; E78.5 Hyperlipidemia, unspecified; E88.09 Other disorders of plasma-protein metabolism, not elsewhere classified; Z91.19 Patient's noncompliance with other medical treatment and regimen; Z68.23 Body mass index [BMI] 23.0-23.9, adult; I10 Essential (primary) hypertension; R13.10 Dysphagia, unspecified; Z20.822 Contact with and (suspected) exposure to COVID-19; K29.70 Gastritis, unspecified, without bleeding; J45.909 Unspecified asthma, uncomplicated; Z79.899 Other long term (current) drug therapy
CPT/HCPCS: 36415; 70030-TC; 70450; 71045; 74018; 83605; 83690; 83735; 84100; 84443; 84484; 85025; 87040; 87086; 93005; 97161; A4663; A6209; C9113; G0378; J0690; J0696; J1644; J2060; J2270; J2358; J2405; J3486; J3490

== ENCOUNTER 2025-07-16 20:28 | Inpatient (IN) | payer MEDICARE, OTHER ==
[~2025-07-16] VITALS: Ht 165.1 cm; Wt 45.4 kg
[~2025-07-16 20:28] MED LIST changes: -ACET-73 PO; -ALBU8.5H8 INH; -BUDE10.27 INH; -ENOX40DI SUBCUT; -ONDA4TAB11 PO; -POLY17PO4 PO; -SENN-261 PO
[2025-07-16] MEDS ORDERED: POLY17PO4 PO (22:11)
[2025-07-16] MEDS ORDERED: NUT.237L25 PO (22:11)
[2025-07-16] MEDS ORDERED: OXCA150T13 PO (22:11)
[2025-07-16] MEDS ORDERED: ZINC56.713 TP (22:11)
[2025-07-16] MEDS ORDERED: NA P133E RC (22:11)
[2025-07-16] MEDS ORDERED: CHOL10005 PO (22:11)
[2025-07-16] MEDS ORDERED: LACO50TA2 PO (22:11)
[2025-07-16] MEDS ORDERED: DOCU100C36 PO (22:11)
[2025-07-16] MEDS ORDERED: SENN8.6T19 PO (22:11)
[2025-07-16] MEDS: IV NS 1000 ML 1,000 ML IV ONE (22:30)
[2025-07-16 22:45] LABS: PLATELET COUNT (AUTO) 328 K/uL (179-408); RED BLOOD CELL COUNT(AUTO) 4.59 MIL/uL (3.63-4.92); RED CELL DISTRIBUTION WIDTH 13.3 % (12.3-17.7); WHITE BLOOD COUNT (AUTO) 10.1 K/uL (3.8-11.8)
[2025-07-16 22:52] LABS: CREATININE 0.5 mg/dL (0.6-1.3); SODIUM SERUM 142.0 mmol/L (136-145); UREA NITROGEN, BLOOD 7.0 mg/dL (7-18)
[2025-07-16 22:58] LABS: ASPARTATE AMINOTRANSFERASE 27.0 U/L (15-37); TOTAL PROTEIN, SERUM 6.7 g/dL (6.4-8.2)
[2025-07-17 00:10] LABS: *BILIRUBIN,URIN NEGATIVE (NEGATIVE); *BLOOD, URINE NEGATIVE (NEGATIVE); *CLARITY,URINE CLEAR (CLEAR); *COLOR,URINE YELLOW (YELLOW); *KETONES,URINE NEGATIVE (NEGATIVE); *PROTEIN,URINE NEGATIVE (NEGATIVE); *UROBILINOGEN,URINE 0.2 E.U./dl (NORMAL); LEUKOCYTE ESTERASE ,URINE NEGATIVE (NEGATIVE); NITRITE, URINE NEGATIVE (NEGATIVE); UGLUCOSE NEGATIVE (NEGATIVE)
[2025-07-17] MEDS ORDERED: ACETAMINOPHEN 650 MG SUPP.RECT RC PRN (01:15)
[2025-07-17] MEDS ORDERED: ONDANSETRON 4 MG/2 ML VIAL IV PRN (01:15)
[2025-07-17 04:00] VITALS: BP 143/76; TEMP 98.4; O2SAT 98
[2025-07-17] MEDS ORDERED: CHOL-35 PO (10:04)
[2025-07-17 11:55] VITALS: BP 123/68; TEMP 98.6; O2SAT 98
[2025-07-17] MEDS: IV D5/ 0.9% NACL 1,000 ML IV PRN (15:25)
[2025-07-17 15:50] VITALS: BP 131/71; TEMP 98.1; O2SAT 98
[2025-07-17 19:58] VITALS: BP 138/78; TEMP 97.9; O2SAT 97
[2025-07-18 04:45] VITALS: BP 139/71; TEMP 97.7; O2SAT 95
[2025-07-18 06:46] LABS: PLATELET COUNT (AUTO) 235 K/uL (179-408); RED BLOOD CELL COUNT(AUTO) 3.41 MIL/uL (3.63-4.92); RED CELL DISTRIBUTION WIDTH 13.6 % (12.3-17.7); WHITE BLOOD COUNT (AUTO) 8.9 K/uL (3.8-11.8)
[2025-07-18 09:12] LABS: CREATININE 0.4 mg/dL (0.6-1.3); SODIUM SERUM 142 mmol/L (136-145); UREA NITROGEN, BLOOD 4 mg/dL (7-18)
[2025-07-18 12:00] VITALS: BP 136/70; TEMP 98; O2SAT 97
[2025-07-18 16:00] VITALS: BP 133/79; TEMP 97.6; O2SAT 99
[2025-07-18 19:53] VITALS: BP 128/62; TEMP 98.3; O2SAT 99
[2025-07-19 05:54] VITALS: BP 125/62; TEMP 98.5; O2SAT 99
[2025-07-19] MEDS: MUPIROCIN 2% OINT 22 GM TUBE NS SCH (09:00)
[2025-07-19 11:42] VITALS: BP 142/76; TEMP 97.8; O2SAT 95
[2025-07-19] MEDS: JEVITY 1.2 1000 ML LIQUID GT PRN (14:01)
[2025-07-19 15:50] VITALS: BP 129/74; TEMP 97.9; O2SAT 97
[2025-07-19 19:40] VITALS: BP 127/79; TEMP 98.9; O2SAT 98
[2025-07-19] MEDS ORDERED: MUPIROCIN 2% OINT 22 GM TUBE ONE (20:51)
[2025-07-20 06:26] VITALS: BP 119/61; TEMP 98.6; O2SAT 97
[2025-07-20 06:40] LABS: PLATELET COUNT (AUTO) 234 K/uL (179-408); RED BLOOD CELL COUNT(AUTO) 3.35 MIL/uL (3.63-4.92); RED CELL DISTRIBUTION WIDTH 13.3 % (12.3-17.7); WHITE BLOOD COUNT (AUTO) 13.6 K/uL (3.8-11.8)
[2025-07-20 06:55] LABS: CREATININE 0.3 mg/dL (0.6-1.3); SODIUM SERUM 146 mmol/L (136-145); UREA NITROGEN, BLOOD 5 mg/dL (7-18)
[2025-07-20 11:35] VITALS: BP 121/65; TEMP 98.6; O2SAT 95
[2025-07-20] MEDS: POTASSIUM CHLORIDE 50 ML IV SCH (11:56)
[2025-07-20 16:00] VITALS: BP 138/70; TEMP 98.7; O2SAT 98
[2025-07-20 19:42] VITALS: BP 116/60; TEMP 98; O2SAT 96
[2025-07-21 05:34] VITALS: BP 143/71; TEMP 97.9; O2SAT 96
[2025-07-21 06:37] LABS: PLATELET COUNT (AUTO) 273 K/uL (179-408); RED BLOOD CELL COUNT(AUTO) 3.57 MIL/uL (3.63-4.92); RED CELL DISTRIBUTION WIDTH 12.9 % (12.3-17.7); WHITE BLOOD COUNT (AUTO) 13.6 K/uL (3.8-11.8)
[2025-07-21 06:58] LABS: CREATININE 0.3 mg/dL (0.6-1.3); SODIUM SERUM 142 mmol/L (136-145); UREA NITROGEN, BLOOD 5 mg/dL (7-18)
[2025-07-21 11:36] VITALS: BP 117/65; TEMP 98.5; O2SAT 97
[2025-07-21 13:34] VITALS: BP 131/69
[2025-07-21 16:00] VITALS: BP 134/68; TEMP 97.7; O2SAT 99
[2025-07-21 19:35] VITALS: BP 132/70; TEMP 97.9; O2SAT 97
[2025-07-22 04:42] VITALS: BP 137/68; TEMP 98.4; O2SAT 97
[2025-07-22 06:36] LABS: PLATELET COUNT (AUTO) 300 K/uL (179-408); RED BLOOD CELL COUNT(AUTO) 3.86 MIL/uL (3.63-4.92); RED CELL DISTRIBUTION WIDTH 13.0 % (12.3-17.7); WHITE BLOOD COUNT (AUTO) 14.0 K/uL (3.8-11.8)
[2025-07-22 07:10] LABS: CREATININE 0.4 mg/dL (0.6-1.3); SODIUM SERUM 141 mmol/L (136-145); UREA NITROGEN, BLOOD 3 mg/dL (7-18)
[2025-07-22] MEDS: REMEDY ESSENTIAL ZINC PASTE 113 GM TP PRN (08:54)
[2025-07-22 12:00] VITALS: BP 139/67; TEMP 102.4; O2SAT 96
[2025-07-22] MEDS: POTASSIUM CHLORIDE 50 ML IV SCH (12:13)
[2025-07-22] MEDS: JEVITY 1.2 1000 ML LIQUID GT PRN (12:32)
[2025-07-22] MEDS ORDERED: OXCA150T13 GT (12:51)
[2025-07-22] MEDS ORDERED: MENT113O TP (12:51)
[2025-07-22] MEDS ORDERED: ACET650S13 RC (12:51)
[2025-07-22] MEDS ORDERED: ATOR40TA GT (12:51)
[2025-07-22] MEDS ORDERED: LACO50TA2 GT (12:51)
[2025-07-22] MEDS ORDERED: MUPI22OI2 NS (12:51)
[2025-07-22] MEDS ORDERED: LACT-209 GT (12:51)
[2025-07-22] MEDS ORDERED: JEVITY 1.2 1000 ML LIQUID GT SCH (15:15)
[2025-07-22] MEDS ORDERED: JEVITY 1.2 1000 ML LIQUID GT PRN ×3 (15:15→18:52)
[2025-07-22 16:00] VITALS: BP 133/65; TEMP 98.4; O2SAT 96
== END 2025-07-22 19:15 | DRG 640 ==
LOC: ER 20:37 → MEDSURG3 07-17 01:12
PROVIDERS: ADMIT Registered Nurse Psychiatric/Mental Health; ATTEND Nurse Practitioner Acute Care
PROC: 0DH63UZ Insertion of Feeding Device into Stomach, Percutaneous Approach (ICD-10-PCS; principal; 2025-07-21 12:30)
PROC: 3E0G76Z Introduction of Nutritional Substance into Upper GI, Via Natural or Artificial Opening (ICD-10-PCS; 2025-07-22)
DX: R62.7 Adult failure to thrive (principal); R53.2 Functional quadriplegia; E44.1 Mild protein-calorie malnutrition; Z68.1 Body mass index [BMI] 19.9 or less, adult; D68.59 Other primary thrombophilia; G40.909 Epilepsy, unspecified, not intractable, without status epilepticus; E78.5 Hyperlipidemia, unspecified; E87.5 Hyperkalemia; E88.09 Other disorders of plasma-protein metabolism, not elsewhere classified; Z22.322 Carrier or suspected carrier of Methicillin resistant Staphylococcus aureus; M62.49 Contracture of muscle, multiple sites; Z79.899 Other long term (current) drug therapy; R13.10 Dysphagia, unspecified; K29.70 Gastritis, unspecified, without bleeding; F03.90 Unspecified dementia, unspecified severity, without behavioral disturbance, psychotic disturbance, mood disturbance, and anxiety
CPT/HCPCS: 36415; 43235; 71045; 83605; 83735; 84100; 84484; 85025; 87040; A4606; A4663; A6213; C1758; G0378; J3480; J7040; J7042